=== PATIENT | male | born 1960 | race Caucasian/White ===

== ENCOUNTER → 2023-12-21 06:43 | Outpatient (REF) | payer BC, SELFPAY | LOC: RAD 06:43 | PROVIDERS: ATTENDING PHYSICIAN Nurse Practitioner Family | DX: Z86.73 Personal history of transient ischemic attack (TIA), and cerebral infarction without residual deficits (principal); Z87.891 Personal history of nicotine dependence | CPT/HCPCS: 76770; 93880 ==

== ENCOUNTER → 2024-01-22 07:00 | Outpatient (REF) | payer BC, SELFPAY | LOC: HWRAD 07:00 | PROVIDERS: ATTENDING PHYSICIAN Internal Medicine Endocrinology, Diabetes & Metabolism; FAMILY PHYSICIAN Nurse Practitioner Family | DX: R94.6 Abnormal results of thyroid function studies (principal) | CPT/HCPCS: 76536 ==

== ENCOUNTER → 2024-12-18 07:19 | Outpatient (REF) | payer BC, SELFPAY | LOC: HWRAD 07:19 | PROVIDERS: ATTENDING PHYSICIAN Anesthesiology; FAMILY PHYSICIAN Nurse Practitioner Family | DX: M17.11 Unilateral primary osteoarthritis, right knee (principal) | CPT/HCPCS: 73560 ==

== ENCOUNTER 2025-02-01 18:08 | Emergency (ER) | payer BC, SELFPAY ==
[2025-02-01 18:17] VITALS: BP 162/82
--- NOTE | 2025-02-01 19:52 | ED.GENMED ---
History of Present Illness
General
Chief Complaint: Head Injury
Source: patient
Exam Limitations: none
Time Seen by Provider: 02/01/25 19:15
Nursing documentation reviewed up to this point in time: agreed with
History of Present Illness
History of Present Illness:
This is a 64 y/o male with a pmh of CVA, diverticulosis,, presents emergency department today with concerns of laceration noted to left forehead. Patient reports that he was at home and carrying boxes down 3 concrete stairs on the back of his porch
when he lost his footing and fell forward, hitting his face onto the ground. He not lose consciousness. He does take 1 baby aspirin daily but no other blood thinners, no anticoagulants. Patient states that he was able to get up from the ground
without any difficulty and has been ambulating since with no pain. Patient denies any other injuries. He denies any neck pain. Patient states that he has been having trouble controlling the bleeding from his forehead laceration. Patient denies
dizziness or lightheadedness prior to this episode.
Past History
Past History
ED Past Medical History: Other (Diverticulitis, TIA)
ED Past Surgical History: None
Social History
Tobacco: Non-smoker
Alcohol: None
Drug: None
Personal: Single
Employment: Employed
Family History
Family History: Other (Noncontributory)
Review of Systems
Review of Systems
All Other Systems: ROS reviewed and negative except as documented in HPI and ROS
Phy Exam
Physical Exam
Physical Exam:
General: Patient is well appearing and in no acute distress; non-toxic
Skin: See below
Head: 2 cm laceration noted to the left forehead with surrounding abrasion, no tenderness palpation of the facial bones
Eyes: Sclera non-icteric. EOMs intact.
Cardiac: Regular rate and rhythm, no murmur, no tenderness palpation of the external chest wall
Pulm: Normal respiratory effort, no wheezes, rales, rhonchi
Musculoskeletal: Full range of motion of bilateral upper and lower extremities
Neuro: CN II-XII intact, no focal neurologic deficits.
Psychiatric: Appropriate mood and affect.
Course
Orders/Labs/Results
Orders:
Orders
02/01/25 18:24
CT Cervical Spine W/o Iv Contr Urgent
Comment:
Reason For Exam: fall down [address] Head W/o Iv Contrast Urgent
Comment:
Reason For Exam: fall down 5 steps
Vital Signs
Initial and Last Documented VS:
Initial Vital Signs
Temp Pulse Resp BP Pulse Ox
98.1 F 66 18 162/82 95
02/01/25 18:17 02/01/25 18:17 02/01/25 18:17 02/01/25 18:17 02/01/25 18:17
Last Documented Vital Signs
Temp Pulse Resp BP Pulse Ox
98.1 F 61 18 165/78 97
02/01/25 18:17 02/01/25 21:44 02/01/25 21:44 02/01/25 21:44 02/01/25 21:44
Procedures
Laceration Closure
Left Forehead:
Status of Wound: appears infected
Size of Wound in cm: 2
Description of Wound Edges: sharp
Preparation: cleaned with saline
Anesthesia: 1% Lidocaine with epi
Revision/Debridement: routine- no revision
Wound exploration: explored to base- no FB
Type of Closure: single layer closure
Skin Closure Material: 5-0 prolene
Number of sutures: 3
MDM/Problems Addressed
Differential Diagnosis Includes:
Differentials include laceration, abrasion, epidural hematoma, subdural hematoma
MDM/Problems Addressed:
64-year-old male presents emergency department today with concerns of a laceration to his left forehead. He fell when he was carrying boxes down steps. He not lose consciousness. On exam he is well-appearing in no acute distress. His laceration
was repaired with stitches and Dermabond over the bleeding abrasion for hemostasis. CAT scans of the head and cervical spine negative. Patient stable for discharge.nn/a
Chronic conditions affecting care:
n/a
*Pulse Oximetry
Patient hypoxic: no
*Critical Care Note
Total Time (30-74mins, 75-104mins- exclusive of procedures): Not Applicable
Data Reviewed
Review of Other/Old Records Reveals: Records (Reviewed ER physician documentation from 12/19/2017 patient seen for abdominal pain)
Source: patient and records
Patient Management
Escalation/DeEscalation of care consider admission/obs:
Admit not indicated, patient stable for discharge
ED Attending Note
-
Portions of this chart may have been created with voice recognition software.� Occasional wrong word or��sound alike� substitutions may have occurred due to the inherent limitations of voice recognition software.
Discharge Plan
Departure
Patient Disposition: Home (Routine Discharge)
Date of Disposition: 02/01/25
Time of Disposition: 20:41
Patient with high blood pressure during this ER visit?: Yes
Condition: Good
Discharge Problem:
Fall (on) (from) other stairs and steps, initial encounter, Forehead laceration
Instructions: Laceration Repair With Glue (DC), Laceration Repair With Stitches (DC), Preventing falls in adults, BLOOD PRESSURE
Prescriptions:
No Action
metronidazole 500 MG tablet
500 mg PO TID Qty: 30 0RF
levofloxacin 750 MG tablet
750 mg PO DAILY Qty: 10 0RF
Referrals:
Antonio Oates CRNP [Family Provider] -
Activity Restrictions/Additional Instructions:
Please report to your primary care provider or the emergency department to have your stitches removed in 7 to 10 days. Please keep the wound dry for 24 hours. After 24 hours, you can let warm water run over the wound, however please do not scrub
the wound. In regards to your abrasion, the Dermabond glue will peel off on its own as the wound heals. Please do not use hydrogen peroxide or rubbing alcohol as this will dissolve the glue.
Your CT scan of your head and your neck showed no evidence of any spinal fracture or any acute intracranial abnormality.
You can take Tylenol as needed for your pain.
PLEASE RETURN EMERGENCY DEPARTMENT TO DEVELOP AN ACUTE WORSENING OF YOUR SYMPTOMS, HEADACHES, NAUSEA VOMITING, LOSS OF CONSCIOUSNESS, NECK PAIN, NUMBNESS OR TINGLING IN YOUR UPPER EXTREMITIES, REDNESS SURROUNDING THE WOUND, PURULENT DRAINAGE, FEVERS
OR CHILLS, OR ANY OTHER SIGNS OR SYMPTOMS WORRISOME TO YOU.
Interventions
Interventions:
*Risk Screen - Suicide Last Done: 02/01/25 21:44
*General Assessment Last Done: 02/01/25 18:17
*Neglect/Abuse Screening Last Done: 02/01/25 18:17
*ED- Fall Risk Assessment Last Done: 02/01/25 21:44
*ED COVID-19 Vaccine History Last Done: 02/01/25 18:17
*Nursing Disposition Last Done: 02/01/25 21:44
ED- Neurological Assessment Last Done: 02/01/25 21:43
ED-Skin Assessment Last Done: 02/01/25 21:43
Discharge Date and Time
Discharge Date/Time: 02/01/25 21:45
Print Language: GHANAIAN
[2025-02-01 21:44] VITALS: BP 165/78
== END 2025-02-01 21:45 | disposition home or self-care (01) ==
LOC: EMR 18:08
PROVIDERS: EMERGENCY PHYSICIAN Emergency Medicine; FAMILY PHYSICIAN Nurse Practitioner Family
DX: S01.81XA Laceration without foreign body of other part of head, initial encounter (principal); W10.9XXA Fall (on) (from) unspecified stairs and steps, initial encounter; Z86.73 Personal history of transient ischemic attack (TIA), and cerebral infarction without residual deficits; Z79.82 Long term (current) use of aspirin
CPT/HCPCS: 12011; 99284; 70450; 72125